=== PATIENT | female | born 1935 | race Caucasian/White ===

== ENCOUNTER 2016-03-19 | Outpatient (CLI) | payer MEDICARE, OTHER | END 2016-03-19 06:25 | disposition EMS.NT | DX: Z03.89 Encounter for observation for other suspected diseases and conditions ruled out (principal) ==

== ENCOUNTER 2016-03-28 | Outpatient (CLI) | payer MEDICARE, OTHER | END 2016-03-28 20:59 | disposition EMS.NT | DX: E16.2 Hypoglycemia, unspecified (principal) ==

== ENCOUNTER 2016-03-30 | Outpatient (CLI) | payer MEDICARE, OTHER | END 2016-03-30 00:36 | disposition critical access hospital (66) | CPT/HCPCS: A0425; A0427 ==

== ENCOUNTER 2016-03-30 00:49 | Inpatient (IN) | payer MEDICARE, OTHER ==
[2016-03-30] MEDS ORDERED: FUROSEMIDE 40 MG/4 ML VIAL IVP STA (01:37)
[2016-03-30] MEDS ORDERED: ACETAMINOPHEN 325 MG TABLET PO STA (01:38)
[2016-03-30] MEDS ORDERED: LEVALBUTEROL 1.25 MG INH STA (01:39)
[2016-03-30] MEDS ORDERED: methylPREDNISolone SUCCINATE 125 MG/2 ML VIAL IVP STA (01:39)
[2016-03-30] MEDS ORDERED: LEVALBUTEROL 1.25 MG INH ONE (01:44)
[2016-03-30] MEDS ORDERED: SODIUM CHLORIDE INHALATION 3 ML NEB ONE (01:44)
[2016-03-30] MEDS ORDERED: FUROSEMIDE 40 MG/4 ML VIAL ONE (01:50)
[2016-03-30] MEDS ORDERED: ACETAMINOPHEN 325 MG TABLET PO ONE (01:50)
[2016-03-30] MEDS ORDERED: methylPREDNISolone SUCCINATE 125 MG/2 ML VIAL IVP ONE (01:50)
[2016-03-30] MEDS ORDERED: ONDANSETRON 4 MG/2 ML VIAL IVP PRN (03:57)
[2016-03-30] MEDS ORDERED: ACETAMINOPHEN 325 MG TABLET PO PRN (03:57)
[2016-03-30] MEDS ORDERED: ALBUTEROL NEB 2.5 MG/3 ML INH PRN (04:03)
[2016-03-30] MEDS ORDERED: AZITHROMYCIN INJ 500 MG in SODIUM CHLORIDE 0.9% 250 ML IV STA (04:07)
[2016-03-30] MEDS: IPRATROPIUM/ALBUTEROL 3 ML NEB INH SCH ×4 (06:15→23:45)
[2016-03-30] MEDS: PANTOPRAZOLE 40 MG TABLET PO SCH (06:32)
[2016-03-30] MEDS: LEVOTHYROXINE 25 MCG TABLET PO SCH (06:32)
[2016-03-30] MEDS: SODIUM CHLORIDE FLUSH 0.9% 10 ML SYRINGE IVP SCH ×3 (06:34→21:37)
[2016-03-30] MEDS ORDERED: INSULIN GLARGINE 300 UNIT/3 ML PEN SUBQ SCH (09:00)
[2016-03-30] MEDS ORDERED: PERFLUTREN LIPID MICROSPHERES 1.65 MG/1.5 ML VIAL IVP ONE (09:13)
[2016-03-30] MEDS: INSULIN ASPART 300 UNIT/3 ML PEN SUBQ SCH ×7 (09:51→22:05)
[2016-03-30] MEDS: ASPIRIN EC 81 MG TABLET PO SCH (09:53)
[2016-03-30] MEDS: FLUTICASONE NASAL SPRAY NAS SCH (09:53)
[2016-03-30] MEDS: ENOXAPARIN 40 MG/0.4 ML SYRINGE SUBQ SCH (09:53)
[2016-03-30] MEDS: FUROSEMIDE 40 MG/4 ML VIAL IVP SCH ×2 (09:54→20:13)
[2016-03-30] MEDS: methylPREDNISolone SUCCINATE 40 MG/ML VIAL IVP SCH ×2 (09:55→21:37)
[2016-03-30] MEDS: POLYETHYLENE GLYCOL 3350 17 GM PACKET PO SCH (09:55)
[2016-03-30] MEDS: SODIUM CHLORIDE FLUSH 0.9% 10 ML SYRINGE IVP PRN (09:56)
[2016-03-30] MEDS: CARVEDILOL 12.5 MG TABLET PO SCH ×2 (10:04→20:14)
[2016-03-30] MEDS: LOSARTAN 50 MG TABLET PO SCH (10:04)
[2016-03-30] MEDS: FORMOTEROL FUMARATE NEB 20 MCG/2 ML INH SCH ×2 (11:00→20:00)
[2016-03-30] MEDS: BUDESONIDE 0.5 MG/2 ML NEB INH SCH ×2 (11:00→20:00)
[2016-03-30] MEDS: PRAVASTATIN 10 MG TABLET PO SCH (20:13)
[2016-03-30] MEDS: MONTELUKAST 10 MG TABLET PO SCH (20:14)
[2016-03-30] MEDS: INSULIN GLARGINE 300 UNIT/3 ML PEN SUBQ SCH (22:06)
[2016-03-31] MEDS: INSULIN ASPART 300 UNIT/3 ML PEN SUBQ SCH ×8 (02:14→21:32)
[2016-03-31] MEDS: IPRATROPIUM/ALBUTEROL 3 ML NEB INH SCH ×3 (05:00→14:10)
[2016-03-31] MEDS: SODIUM CHLORIDE FLUSH 0.9% 10 ML SYRINGE IVP SCH ×3 (06:38→21:07)
[2016-03-31] MEDS: PANTOPRAZOLE 40 MG TABLET PO SCH (06:38)
[2016-03-31] MEDS: LEVOTHYROXINE 25 MCG TABLET PO SCH (06:38)
[2016-03-31] MEDS: BUDESONIDE 0.5 MG/2 ML NEB INH SCH (07:45)
[2016-03-31] MEDS: FORMOTEROL FUMARATE NEB 20 MCG/2 ML INH SCH (07:45)
[2016-03-31] MEDS: INSULIN GLARGINE 300 UNIT/3 ML PEN SUBQ SCH ×2 (08:26→21:10)
[2016-03-31] MEDS: CARVEDILOL 12.5 MG TABLET PO SCH ×2 (08:49→21:07)
[2016-03-31] MEDS: ASPIRIN EC 81 MG TABLET PO SCH (08:49)
[2016-03-31] MEDS: ENOXAPARIN 40 MG/0.4 ML SYRINGE SUBQ SCH (08:50)
[2016-03-31] MEDS: LOSARTAN 50 MG TABLET PO SCH (08:50)
[2016-03-31] MEDS: FUROSEMIDE 40 MG/4 ML VIAL IVP SCH ×2 (08:50→21:08)
[2016-03-31] MEDS: SODIUM CHLORIDE FLUSH 0.9% 10 ML SYRINGE IVP PRN (08:51)
[2016-03-31] MEDS: FLUTICASONE NASAL SPRAY NAS SCH (08:54)
[2016-03-31] MEDS: methylPREDNISolone SUCCINATE 40 MG/ML VIAL IVP SCH (08:54)
[2016-03-31] MEDS: POLYETHYLENE GLYCOL 3350 17 GM PACKET PO SCH (08:54)
[2016-03-31] MEDS ORDERED: INSULIN ASPART 300 UNIT/3 ML PEN SUBQ ONE ×2 (10:00→12:35)
[2016-03-31] MEDS ORDERED: INSULIN ASPART 100 UNIT/1 ML 10 ML MDV SUBQ ONE (12:35)
[2016-03-31] MEDS: PRAVASTATIN 10 MG TABLET PO SCH (21:07)
[2016-03-31] MEDS: MONTELUKAST 10 MG TABLET PO SCH (21:08)
[2016-04-01] MEDS: IPRATROPIUM/ALBUTEROL 3 ML NEB INH SCH ×5 (06:18→23:16)
[2016-04-01] MEDS: FORMOTEROL FUMARATE NEB 20 MCG/2 ML INH SCH ×3 (06:18→23:16)
[2016-04-01] MEDS: BUDESONIDE 0.5 MG/2 ML NEB INH SCH ×3 (06:18→23:16)
[2016-04-01] MEDS: PANTOPRAZOLE 40 MG TABLET PO SCH (08:25)
[2016-04-01] MEDS: LEVOTHYROXINE 25 MCG TABLET PO SCH (08:25)
[2016-04-01] MEDS: metOLazone 2.5 MG TABLET PO SCH (08:25)
[2016-04-01] MEDS: SODIUM CHLORIDE FLUSH 0.9% 10 ML SYRINGE IVP SCH ×3 (08:25→20:52)
[2016-04-01] MEDS: INSULIN ASPART 300 UNIT/3 ML PEN SUBQ SCH ×7 (08:26→20:36)
[2016-04-01] MEDS: ASPIRIN EC 81 MG TABLET PO SCH (11:28)
[2016-04-01] MEDS: CARVEDILOL 12.5 MG TABLET PO SCH ×2 (11:29→20:36)
[2016-04-01] MEDS: INSULIN GLARGINE 300 UNIT/3 ML PEN SUBQ SCH ×2 (11:31→20:37)
[2016-04-01] MEDS: ENOXAPARIN 40 MG/0.4 ML SYRINGE SUBQ SCH (11:31)
[2016-04-01] MEDS: LOSARTAN 50 MG TABLET PO SCH (11:32)
[2016-04-01] MEDS: methylPREDNISolone SUCCINATE 40 MG/ML VIAL IVP SCH (11:32)
[2016-04-01] MEDS: POLYETHYLENE GLYCOL 3350 17 GM PACKET PO SCH (11:33)
[2016-04-01] MEDS: FUROSEMIDE 40 MG/4 ML VIAL IVP SCH ×2 (11:33→20:52)
[2016-04-01] MEDS: FLUTICASONE NASAL SPRAY NAS SCH (11:34)
[2016-04-01] MEDS: PRAVASTATIN 10 MG TABLET PO SCH (20:36)
[2016-04-01] MEDS: MONTELUKAST 10 MG TABLET PO SCH (20:36)
[2016-04-02] MEDS: SODIUM CHLORIDE FLUSH 0.9% 10 ML SYRINGE IVP SCH ×2 (06:17→13:50)
[2016-04-02] MEDS: LEVOTHYROXINE 25 MCG TABLET PO SCH (06:17)
[2016-04-02] MEDS: PANTOPRAZOLE 40 MG TABLET PO SCH (06:17)
[2016-04-02] MEDS: FORMOTEROL FUMARATE NEB 20 MCG/2 ML INH SCH (07:50)
[2016-04-02] MEDS: IPRATROPIUM/ALBUTEROL 3 ML NEB INH SCH ×2 (07:50→13:06)
[2016-04-02] MEDS: BUDESONIDE 0.5 MG/2 ML NEB INH SCH (07:50)
[2016-04-02] MEDS: metOLazone 2.5 MG TABLET PO SCH (08:24)
[2016-04-02] MEDS: POLYETHYLENE GLYCOL 3350 17 GM PACKET PO SCH (08:24)
[2016-04-02] MEDS: FLUTICASONE NASAL SPRAY NAS SCH (08:24)
[2016-04-02] MEDS: ENOXAPARIN 40 MG/0.4 ML SYRINGE SUBQ SCH (08:25)
[2016-04-02] MEDS: methylPREDNISolone SUCCINATE 40 MG/ML VIAL IVP SCH (08:25)
[2016-04-02] MEDS: CARVEDILOL 12.5 MG TABLET PO SCH (08:25)
[2016-04-02] MEDS: LOSARTAN 50 MG TABLET PO SCH (08:25)
[2016-04-02] MEDS: ASPIRIN EC 81 MG TABLET PO SCH (08:25)
[2016-04-02] MEDS: INSULIN ASPART 300 UNIT/3 ML PEN SUBQ SCH ×4 (08:26→11:59)
[2016-04-02] MEDS: FUROSEMIDE 40 MG/4 ML VIAL IVP SCH (08:26)
[2016-04-02] MEDS: INSULIN GLARGINE 300 UNIT/3 ML PEN SUBQ SCH (08:29)
== END 2016-04-02 15:45 | DRG 291 ==
DX: I13.0 Hypertensive heart and chronic kidney disease with heart failure and stage 1 through stage 4 chronic kidney disease, or unspecified chronic kidney disease (principal); J44.9 Chronic obstructive pulmonary disease, unspecified; I11.0 Hypertensive heart disease with heart failure; I50.9 Heart failure, unspecified; E78.00 Pure hypercholesterolemia, unspecified; J45.909 Unspecified asthma, uncomplicated; E11.9 Type 2 diabetes mellitus without complications; J96.21 Acute and chronic respiratory failure with hypoxia; R32 Unspecified urinary incontinence; R35.0 Frequency of micturition; I50.22 Chronic systolic (congestive) heart failure; Z68.43 Body mass index [BMI] 50.0-59.9, adult; E11.22 Type 2 diabetes mellitus with diabetic chronic kidney disease; J44.1 Chronic obstructive pulmonary disease with (acute) exacerbation; N18.2 Chronic kidney disease, stage 2 (mild); E66.01 Morbid (severe) obesity due to excess calories; I48.2 Chronic atrial fibrillation; E78.5 Hyperlipidemia, unspecified; G47.33 Obstructive sleep apnea (adult) (pediatric); I25.10 Atherosclerotic heart disease of native coronary artery without angina pectoris; E03.9 Hypothyroidism, unspecified; I89.0 Lymphedema, not elsewhere classified; F32.9 Major depressive disorder, single episode, unspecified; M19.90 Unspecified osteoarthritis, unspecified site; Z79.51 Long term (current) use of inhaled steroids; Z79.899 Other long term (current) drug therapy; Z79.4 Long term (current) use of insulin; Z66 Do not resuscitate; Z90.79 Acquired absence of other genital organ(s); Z87.891 Personal history of nicotine dependence

== ENCOUNTER 2016-04-21 | Outpatient (CLI) | payer MEDICARE, OTHER | END 2016-04-21 06:54 | disposition critical access hospital (66) | CPT/HCPCS: A0425; A0427 ==

== ENCOUNTER 2016-04-21 07:07 | Inpatient (IN) | payer MEDICARE, OTHER ==
[2016-04-21] MEDS ORDERED: IPRATROPIUM/ALBUTEROL 3 ML NEB INH STA (07:26)
[2016-04-21] MEDS ORDERED: SODIUM CHLORIDE 0.9% 1,000 ML IV ONE ×2 (07:26→10:35)
[2016-04-21] MEDS ORDERED: IPRATROPIUM/ALBUTEROL 3 ML NEB INH ONE (07:38)
[2016-04-21] MEDS ORDERED: SODIUM CHLORIDE FLUSH 0.9% 10 ML SYRINGE IVP PRN (11:03)
[2016-04-21] MEDS ORDERED: IPRATROPIUM/ALBUTEROL 3 ML NEB INH PRN (11:06)
[2016-04-21] MEDS ORDERED: SODIUM CHLORIDE 0.9% 1,000 ML IV SCH (12:00)
[2016-04-21] MEDS: SODIUM CHLORIDE FLUSH 0.9% 10 ML SYRINGE IVP SCH ×2 (13:41→22:49)
[2016-04-21] MEDS ORDERED: SODIUM CHLORIDE INHALATION 3 ML NEB ONE (14:35)
[2016-04-21] MEDS: LEVALBUTEROL 1.25 MG INH SCH ×2 (14:37→21:35)
[2016-04-21] MEDS ORDERED: ACETAMINOPHEN 325 MG TABLET PO PRN (15:08)
[2016-04-21] MEDS: INSULIN ASPART 300 UNIT/3 ML PEN SUBQ SCH ×3 (15:20→21:34)
[2016-04-21] MEDS: IBUPROFEN 800 MG TABLET PO PRN (18:25)
[2016-04-21] MEDS: methylPREDNISolone SUCCINATE 40 MG/ML VIAL IVP SCH ×2 (18:26→21:21)
[2016-04-21] MEDS: PRAVASTATIN 10 MG TABLET PO SCH (21:22)
[2016-04-21] MEDS: CARVEDILOL 12.5 MG TABLET PO SCH (21:22)
[2016-04-21] MEDS: FUROSEMIDE 40 MG TABLET PO SCH (21:22)
[2016-04-21] MEDS: MONTELUKAST 10 MG TABLET PO SCH (21:22)
[2016-04-21] MEDS: INSULIN GLARGINE 300 UNIT/3 ML PEN SUBQ SCH (21:33)
[2016-04-21] MEDS: BUDESONIDE 0.5 MG/2 ML NEB INH SCH (21:35)
[2016-04-21] MEDS: SODIUM CHLORIDE 0.9% 1,000 ML IV SCH (22:49)
[2016-04-22] MEDS: SODIUM CHLORIDE FLUSH 0.9% 10 ML SYRINGE IVP SCH ×3 (05:04→21:36)
[2016-04-22] MEDS: SODIUM CHLORIDE 0.9% 1,000 ML IV SCH ×2 (06:24→14:20)
[2016-04-22] MEDS: PANTOPRAZOLE 40 MG TABLET PO SCH (06:33)
[2016-04-22] MEDS: LEVOTHYROXINE 25 MCG TABLET PO SCH (06:33)
[2016-04-22] MEDS: methylPREDNISolone SUCCINATE 40 MG/ML VIAL IVP SCH ×3 (06:53→21:33)
[2016-04-22] MEDS: LEVALBUTEROL 1.25 MG INH SCH ×3 (08:30→21:09)
[2016-04-22] MEDS: BUDESONIDE 0.5 MG/2 ML NEB INH SCH ×2 (08:30→21:09)
[2016-04-22] MEDS: POLYETHYLENE GLYCOL 3350 17 GM PACKET PO SCH (08:46)
[2016-04-22] MEDS: LOSARTAN 50 MG TABLET PO SCH (08:47)
[2016-04-22] MEDS: CARVEDILOL 12.5 MG TABLET PO SCH ×2 (08:47→21:32)
[2016-04-22] MEDS: FLUTICASONE NASAL SPRAY NAS SCH (08:48)
[2016-04-22] MEDS: FUROSEMIDE 40 MG TABLET PO SCH (08:48)
[2016-04-22] MEDS: INSULIN ASPART 300 UNIT/3 ML PEN SUBQ SCH ×4 (08:54→21:33)
[2016-04-22] MEDS ORDERED: INSULIN GLARGINE 300 UNIT/3 ML PEN SUBQ SCH ×2 (09:00→17:08)
[2016-04-22] MEDS ORDERED: ENOXAPARIN 40 MG/0.4 ML SYRINGE SUBQ SCH (09:00)
[2016-04-22] MEDS ORDERED: predniSONE 20 MG TABLET PO SCH (09:00)
[2016-04-22] MEDS ORDERED: SODIUM CHLORIDE INHALATION 3 ML NEB ONE (13:00)
[2016-04-22] MEDS: IBUPROFEN 800 MG TABLET PO PRN (17:14)
[2016-04-22] MEDS ORDERED: INSULIN REGULAR HUMAN 100 UNIT/1 ML 10 ML MDV SUBQ ONE (18:00)
[2016-04-22] MEDS: INSULIN GLARGINE 300 UNIT/3 ML PEN SUBQ SCH (21:30)
[2016-04-22] MEDS: PRAVASTATIN 10 MG TABLET PO SCH (21:32)
[2016-04-22] MEDS: MONTELUKAST 10 MG TABLET PO SCH (21:32)
[2016-04-22] MEDS ORDERED: INSULIN ASPART 300 UNIT/3 ML PEN SUBQ SCH (22:00)
[2016-04-22] MEDS ORDERED: A & D OINTMENT 5 GM PACKET TOP PRN (22:12)
[2016-04-23] MEDS: SODIUM CHLORIDE FLUSH 0.9% 10 ML SYRINGE IVP SCH ×2 (07:01→08:20)
[2016-04-23] MEDS: PANTOPRAZOLE 40 MG TABLET PO SCH (07:01)
[2016-04-23] MEDS: LEVOTHYROXINE 25 MCG TABLET PO SCH (07:01)
[2016-04-23] MEDS: LEVALBUTEROL 1.25 MG INH SCH ×2 (07:30→09:07)
[2016-04-23] MEDS: BUDESONIDE 0.5 MG/2 ML NEB INH SCH ×2 (07:30→09:07)
[2016-04-23] MEDS: INSULIN ASPART 300 UNIT/3 ML PEN SUBQ SCH ×2 (08:17→11:50)
[2016-04-23] MEDS: CARVEDILOL 12.5 MG TABLET PO SCH (08:19)
[2016-04-23] MEDS: methylPREDNISolone SUCCINATE 40 MG/ML VIAL IVP SCH (08:20)
[2016-04-23] MEDS: FLUTICASONE NASAL SPRAY NAS SCH (08:21)
[2016-04-23] MEDS: LOSARTAN 50 MG TABLET PO SCH (08:21)
[2016-04-23] MEDS ORDERED: CLOPIDOGREL 75 MG TABLET PO SCH (09:00)
[2016-04-23] MEDS ORDERED: FUROSEMIDE 40 MG TABLET PO SCH (09:00)
[2016-04-23] MEDS ORDERED: ENOXAPARIN 30 MG/0.3 ML SYRINGE SUBQ SCH (09:00)
[2016-04-23] MEDS: POLYETHYLENE GLYCOL 3350 17 GM PACKET PO SCH (09:07)
[2016-04-23] MEDS ORDERED: INSULIN GLARGINE 300 UNIT/3 ML PEN SUBQ ONE (09:30)
[2016-04-23] MEDS: IBUPROFEN 800 MG TABLET PO PRN (15:13)
[2016-04-24] MEDS ORDERED: INSULIN GLARGINE 300 UNIT/3 ML PEN SUBQ SCH (09:00)
== END 2016-04-23 16:18 | DRG 872 ==
DX: A41.9 Sepsis, unspecified organism (principal); R40.1 Stupor; L03.115 Cellulitis of right lower limb; I25.10 Atherosclerotic heart disease of native coronary artery without angina pectoris; I11.0 Hypertensive heart disease with heart failure; E78.00 Pure hypercholesterolemia, unspecified; I13.0 Hypertensive heart and chronic kidney disease with heart failure and stage 1 through stage 4 chronic kidney disease, or unspecified chronic kidney disease; G47.30 Sleep apnea, unspecified; E11.9 Type 2 diabetes mellitus without complications; N17.9 Acute kidney failure, unspecified; Z68.42 Body mass index [BMI] 45.0-49.9, adult; I48.2 Chronic atrial fibrillation; E86.0 Dehydration; R65.20 Severe sepsis without septic shock; E11.22 Type 2 diabetes mellitus with diabetic chronic kidney disease; E11.65 Type 2 diabetes mellitus with hyperglycemia; N18.2 Chronic kidney disease, stage 2 (mild); I50.9 Heart failure, unspecified; E66.01 Morbid (severe) obesity due to excess calories; J44.9 Chronic obstructive pulmonary disease, unspecified; G47.33 Obstructive sleep apnea (adult) (pediatric); J45.909 Unspecified asthma, uncomplicated; E03.9 Hypothyroidism, unspecified; I07.1 Rheumatic tricuspid insufficiency; Z87.891 Personal history of nicotine dependence; I89.0 Lymphedema, not elsewhere classified; F32.9 Major depressive disorder, single episode, unspecified; Z79.4 Long term (current) use of insulin; Z79.51 Long term (current) use of inhaled steroids; Z79.52 Long term (current) use of systemic steroids; Z79.899 Other long term (current) drug therapy

== ENCOUNTER 2016-05-01 16:30 | Outpatient (CLI) | payer MEDICARE, OTHER | END 2016-05-01 16:31 | DX: I50.9 Heart failure, unspecified (principal); L03.116 Cellulitis of left lower limb ==

== ENCOUNTER 2016-05-05 | Outpatient (CLI) | payer MEDICARE, OTHER | END 2016-05-05 21:52 | disposition critical access hospital (66) | DX: R06.02 Shortness of breath (principal) | CPT/HCPCS: A0425; A0427 ==

== ENCOUNTER 2016-05-05 21:57 | Emergency (ER) | payer MEDICARE, OTHER ==
[2016-05-05 22:15] VITALS: BP 125/62
--- NOTE | 2016-05-05 22:15 | ED Physician Documentation ---
PD HPI DYSPNEA - Stated complaint Stated Complaint: SOA - Chief complaint Chief Complaint: Resp - History obtained from History obtained from: Patient, EMS - History of Present Illness Timing - onset: How many days ago (she says she has had dyspnea since being in [facility] couple weeks ago. Not every completely better, then worsening the past 2-3 days.) Timing - onset during: Sleep (lying down), Light activity Timing - duration: Minutes Timing - details: Gradual onset, Still present (worse the past 2-3 days) Inciting event(s): Allergic rxn/anaphylaxis Improved by: Inhaler/neb. No: Lasix (had dose increased from 40 mg to 100 mg PO today.) Review of Systems Constitutional: denies: Fever, Chills, Myalgias Nose: denies: Rhinorrhea / runny nose, Congestion Cardiac: denies: Chest pain / pressure GI: reports: Nausea, Vomiting. denies: Abdominal Pain : denies: Dysuria Neurologic: reports: Generalized weakness. denies: Focal weakness, Numbness, Near syncope PD PAST MEDICAL HISTORY - Past Medical History Cardiovascular: Congestive heart failure, Hypertension, High cholesterol, Coronary artery disease Respiratory: Asthma, COPD, Shortness of breath, Sleep apnea Neuro: None Endocrine/Autoimmune: Type 2 diabetes GI: Other DEMOGRAPHER: None : Incontinence, Frequency HEENT: None Psych: Depression Musculoskeletal: Osteoarthritis Derm: None - Past Surgical History Past Surgical History: Yes Ortho: Other /DEMOGRAPHER: Hysterectomy HEENT: Cataracts - Present Medications Home Medications: Ambulatory Orders Medication Instructions Recorded Confirmed Albuterol Sulfate [Proair Hfa 1 - 2 puffs INH Q4H PRN 06/30/15 05/05/16 Inhaler] Carvedilol [Coreg] 25 mg PO BID 12/12/15 05/05/16 Losartan Potassium 50 mg PO DAILY 12/12/15 05/05/16 Fluticasone [Flonase] 2 sprays CLARISA DAILY 01/19/16 05/05/16 Levothyroxine [Synthroid] 25 mcg PO QDAC 01/19/16 05/05/16 Montelukast [Singulair] 10 mg PO QPM 01/19/16 05/05/16 Pravastatin [Pravachol] 20 mg PO QPM 01/19/16 05/05/16 Ipratropium/Albuterol [Duoneb] 3 ml INH Q6H PRN #30 neb 01/21/16 05/05/16 Fluticasone/Salmeterol [Advair 1 puffs INH BID 02/26/16 05/05/16 250-50 Diskus] Insulin Detemir [Levemir Flextouch] 80 units SUBQ DAILY 02/26/16 05/05/16 Insulin Lispro [Humalog Kwikpen 30 - 50 units SUBQ TIDWM 02/26/16 05/05/16 U-100] Omeprazole 20 mg PO QDAC 02/26/16 05/05/16 Furosemide [Furosemide] 40 mg PO DAILY 03/31/16 05/05/16 Insulin Detemir [Levemir Flextouch] 100 units SUBQ QPM 04/21/16 05/05/16 Clopidogrel Bisulfate [Plavix] 75 mg PO DAILY 05/05/16 05/05/16 metOLazone [Zaroxolyn] 2.5 mg PO DAILY #5 tablet 05/06/16 - Allergies Allergies/Adverse Reactions: Allergies Allergy/AdvReac Type Severity Reaction Status Date / Time cefaclor [From [facility]] Allergy Intermediate Itching Verified 05/05/16 22:03 - Social History Does the pt smoke?: No Smoking Status: Never smoker Does the pt have substance abuse?: No - Immunizations Immunizations are current?: Yes - POLST Patient has POLST: No PD ED PE NORMAL - Vitals Vital signs reviewed: Yes - General General: Alert and oriented X 3, No acute distress, Well developed/nourished - HEENT HEENT: Atraumatic, Ears normal, Pharynx benign - Neck Neck: Supple, no meningeal sign, No adenopathy - Cardiac Cardiac: RRR, No murmur - Respiratory Respiratory: No: Clear bilaterally (mild scattered wheezing. Fine crackles lower third of lung jo both sides. Has orthopnea and feels better sitting up. ) - Back Back: No CVA TTP - Derm Derm: Normal color, Warm and dry - Extremities Extremities: No calf tenderness / cord, Other (2-3+ edema in both legs, with some mild redness right lower leg. Faint blistering of anterior lower legs with clear fluid. ) - Neuro Neuro: Alert and oriented X 3, No motor deficit, Normal speech Results - Vitals Vitals: Vital Signs - 24 hr 05/05/16 05/05/16 05/06/16 21:57 22:05 00:15 Temperature 36.2 C L Heart Rate 90 126 H 103 H Respiratory 24 18 14 Rate Blood Pressure 103/51 L 125/62 O2 Saturation 94 97 Oxygen O2 Source [With Activity] Nasal cannula O2 Source [Without Activity] Room air O2 Source Room air - Labs Labs: Laboratory Tests 05/05/16 05/05/16 05/05/16 23:23 23:23 23:23 WBC 12.5 H RBC 3.74 L Hgb 10.9 L Hct 34.2 L MCV 91.4 MCH 29.1 MCHC 31.9 L RDW 18.7 H Plt Count 182 MPV 8.9 Neut # Not Reportable Lymph # Not Reportable Dickenson # Not Reportable Eos # Not Reportable Baso # Not Reportable Absolute Nucleated RBC Not Reportable Total Counted 100 Band Neuts % (Manual) 0 Neutrophils # (Manual) 9.5 H Lymphocytes # (Manual) 2.0 Monocytes # (Manual) 0.9 Eosinophils # (Manual) 0.1 Nucleated RBCs Not Reportable Differential Comment MANUAL DIFFERENTIAL Platelet Estimate NORMAL (130-450,000) Platelet Morphology NORMAL APPEARANCE RBC Morph Micro Appear NORMAL APPEARANCE Sodium 138 Potassium 4.6 Chloride 102 Carbon Dioxide 27 Anion Gap 9.0 BUN 91 H* Creatinine 2.0 H Estimated GFR (MDRD) 24 L Glucose 211 H Calcium 8.2 L Magnesium 2.1 Total Bilirubin 0.7 AST 20 ALT 44 Alkaline Phosphatase 101 Troponin I B-Natriuretic Peptide 56 Total Protein 4.8 L Albumin 2.6 L Globulin 2.2 Albumin/Globulin Ratio 1.2 Lipase 80 H 05/05/16 23:23 WBC RBC Hgb Hct MCV MCH MCHC RDW Plt Count MPV Neut # Lymph # Dickenson # Eos # Baso # Absolute Nucleated RBC Total Counted Band Neuts % (Manual) Neutrophils # (Manual) Lymphocytes # (Manual) Monocytes # (Manual) Eosinophils # (Manual) Nucleated RBCs Differential Comment Platelet Estimate Platelet Morphology RBC Morph Micro Appear Sodium Potassium Chloride Carbon Dioxide Anion Gap BUN Creatinine Estimated GFR (MDRD) Glucose Calcium Magnesium Total Bilirubin AST ALT Alkaline Phosphatase Troponin I < 0.04 B-Natriuretic Peptide Total Protein Albumin Globulin Albumin/Globulin Ratio Lipase PD MEDICAL DECISION MAKING - ED course Complexity details: considered differential (has significant leg edema both sides, with tightness and mild blistering anteriorly. Has fine crackles in both lungs. However, sats are good and renal function is better than during recent hospitalization. She has been on oral Lasix at [facility], 40 mg PO. Had higher dose just today without improvement. Is having some diuresing with IV dose here. Does not look too bad and the CXR is not too bad. I think there is fluid overload and needs further diuresing, but not in severe CHF. ), d/w patient, d/ w leadership development consultant (Will talk with Hospitalist regarding OBS for further diuresing vs. back to [facility] with higher PO dose. Feeling was patient did not meet OBS criteria and can try higher doses/etc at [facility], since did have good initial diuresis and clinical improvement here. ) Departure - Departure Disposition: 01 Home, Self Care Clinical Impression: Dyspnea Qualifiers: Dyspnea type: shortness of breath Qualified Code(s): R06.02 - Shortness of breath CHF exacerbation Qualifiers: Congestive heart failure type: unspecified congestive heart failure type Qualified Code(s): I50.9 - Heart failure, unspecified Condition: Stable Prescriptions: metOLazone [Zaroxolyn] 2.5 mg PO DAILY #5 tablet Comments: Increase daily lasix from 40 mg once daily to twice daily (in AM and then at noon). Add Zaroxyln 2.5 mg daily for 5 days. Recheck BMP chemistry test in 4 days. Discharge Date/Time: 05/06/16 02:40
[2016-05-05] MEDS ORDERED: FUROSEMIDE 20 MG/2 ML VIAL IVP ONE (22:56)
[2016-05-05] MEDS: FUROSEMIDE 40 MG/4 ML VIAL IVP STA (22:58)
--- NOTE | 2016-05-05 23:11 | XRAY Preliminary Report ---
Exam: XR Chest 2 View PA/LAT IMPRESSION: 1. There is mild cardiomegaly. 2. No clear evidence of acute plain film abnormality. [facility] SITE ID: [id number]
--- NOTE | 2016-05-05 23:14 | XRAY Report ---
EXAM: CHEST RADIOGRAPHY EXAM DATE: 05/05/2016 10:59 PM. CLINICAL HISTORY: Dyspnea, heart failure COMPARISON: 04/22/2016. TECHNIQUE: 2 views. FINDINGS: Lungs/Pleura: Detail limited by patient body habitus. Increased opacity within the lower lungs is pro bably secondary to overlying soft tissues. No evidence of focal infiltrate or pleural effusion. No pn eumothorax. Mediastinum: Mild cardiomegaly. Other: No acute bony abnormalities are seen. IMPRESSION: 1. There is mild cardiomegaly. 2. No clear evidence of acute plain film abnormality. [facility] Referring Provider Line: [phone] SITE ID: [id number]
[2016-05-05 23:33] LABS: BASOPHILS % (AUTO) 0.5 %; EOSINOPHILS % (AUTO) 0.4 %; HCT - HEMATOCRIT 34.2 % (37.0-47.0); HGB - HEMOGLOBIN 10.9 g/dL (12.0-16.0); LYMPHOCYTES % (AUTO) 14.7 %; MEAN CORPUSCULAR HEMOGLOBIN 29.1 pg (27.0-31.0); MEAN CORPUSCULAR HGB CONC 31.9 g/dL (32.0-36.0); MEAN CORPUSCULAR VOLUME 91.4 fL (81.0-99.0); MEAN PLATELET VOLUME 8.9 fL (7.9-10.8); MONOCYTES % (AUTO) 7.2 %; NEUTROPHILS % (AUTO) 77.2 %; RED BLOOD COUNT 3.74 10^6/uL (4.20-5.40); RED CELL DISTRIBUTION WIDTH 18.7 % (12.0-15.0); UNCORRECTED WHITE BLOOD COUNT 12.5 x10^3/uL; WHITE BLOOD COUNT 12.5 x10^3/uL (4.8-10.8)
[2016-05-05 23:35] LABS: BAND NEUTROPHILS % (MANUAL) 0 %
[2016-05-06] MEDS ORDERED: IPRATROPIUM/ALBUTEROL 3 ML NEB INH ONE (00:12)
[2016-05-06] MEDS: IPRATROPIUM/ALBUTEROL 3 ML NEB INH STA (00:14)
[2016-05-06 00:35] LABS: EOSINOPHILS % (MANUAL) 1 %; LYMPHOCYTES % (MANUAL) 16 %; NEUTROPHILS % (MANUAL) 76 %; TOTAL CELLS COUNTED 100
[2016-05-06 00:36] LABS: NP AUTO DIFFERENTIAL? YES; NP MAN DIFFERENTIAL? NO; PLATELET ESTIMATE, MANUAL NORMAL (130-450,000) (NORMAL); PLATELET MORPHOLOGY NORMAL APPEARANCE (NORMAL)
[2016-05-06 00:46] LABS: ALBUMIN/GLOBULIN RATIO 1.2 (1.0-2.2); BILIRUBIN,TOTAL 0.7 mg/dL (0.2-1.0); CALCIUM 8.2 mg/dL (8.5-10.3); MAGNESIUM 2.1 mg/dL (1.7-2.8); POTASSIUM 4.6 mmol/L (3.5-5.0); TOTAL PROTEIN 4.8 g/dL (6.7-8.2)
[2016-05-06] MEDS: BUMETANIDE 1 MG/4 ML VIAL IVP STA (01:45)
== END 2016-05-06 02:40 | disposition home or self-care (01) ==
LOC: EDUNIT# → ED 21:57
DX: I11.0 Hypertensive heart disease with heart failure (principal); I50.9 Heart failure, unspecified; I48.91 Unspecified atrial fibrillation; I25.10 Atherosclerotic heart disease of native coronary artery without angina pectoris; R94.31 Abnormal electrocardiogram [ECG] [EKG]; J45.909 Unspecified asthma, uncomplicated; J44.9 Chronic obstructive pulmonary disease, unspecified; E11.9 Type 2 diabetes mellitus without complications; Z79.4 Long term (current) use of insulin; E78.00 Pure hypercholesterolemia, unspecified; M19.90 Unspecified osteoarthritis, unspecified site
CPT/HCPCS: 36415; 51798; 71020; 80053; 83690; 83735; 83880; 84484; 85025; 93005; 94640; 96374; 96375; 99284

== ENCOUNTER 2016-05-06 | Outpatient (CLI) | payer MEDICARE, OTHER | END 2016-05-06 02:20 | DX: R06.02 Shortness of breath (principal) | CPT/HCPCS: A0425; A0428 ==

== ENCOUNTER 2016-05-07 | Outpatient (CLI) | payer MEDICARE, OTHER | END 2016-05-07 10:45 | disposition critical access hospital (66) | CPT/HCPCS: A0425; A0429 ==

== ENCOUNTER 2016-05-07 10:48 | Inpatient (IN) | payer MEDICARE, OTHER ==
[2016-05-07] MEDS ORDERED: IPRATROPIUM/ALBUTEROL 3 ML NEB INH STA (12:06)
[2016-05-07] MEDS ORDERED: SODIUM CHLORIDE 0.9% 500 ML IV ONE (12:06)
[2016-05-07] MEDS ORDERED: IPRATROPIUM/ALBUTEROL 3 ML NEB INH ONE (12:13)
[2016-05-07] MEDS ORDERED: VANCOMYCIN INJ 2 GM in SODIUM CHLORIDE 0.9% 500 ML IV SCH (17:00)
[2016-05-07] MEDS: SODIUM CHLORIDE 0.9% 1,000 ML IV SCH (17:15)
[2016-05-07] MEDS: SODIUM CHLORIDE FLUSH 0.9% 10 ML SYRINGE IVP PRN (17:16)
[2016-05-07] MEDS: INSULIN ASPART 300 UNIT/3 ML PEN SUBQ SCH ×2 (17:28→22:07)
[2016-05-07] MEDS: INSULIN GLARGINE 300 UNIT/3 ML PEN SUBQ SCH (22:07)
[2016-05-07] MEDS: SODIUM CHLORIDE FLUSH 0.9% 10 ML SYRINGE IVP SCH (22:09)
[2016-05-08] MEDS: ONDANSETRON 4 MG/2 ML VIAL IVP PRN ×2 (03:59→10:21)
[2016-05-08] MEDS: SODIUM CHLORIDE FLUSH 0.9% 10 ML SYRINGE IVP SCH ×3 (05:05→22:48)
[2016-05-08] MEDS: IPRATROPIUM/ALBUTEROL 3 ML NEB INH PRN (05:15)
[2016-05-08] MEDS ORDERED: DEXTROSE 50% ABBOJECT 25 GM/50 ML SYRINGE ONE (05:28)
[2016-05-08] MEDS ORDERED: ACETAMINOPHEN 325 MG TABLET PO PRN (06:27)
[2016-05-08] MEDS: INSULIN ASPART 300 UNIT/3 ML PEN SUBQ SCH ×4 (07:57→20:53)
[2016-05-08] MEDS ORDERED: ENOXAPARIN 40 MG/0.4 ML SYRINGE SUBQ SCH (09:00)
[2016-05-08] MEDS: POLYETHYLENE GLYCOL 3350 17 GM PACKET PO SCH (09:06)
[2016-05-08] MEDS: CARVEDILOL 12.5 MG TABLET PO SCH ×2 (09:07→22:07)
[2016-05-08] MEDS ORDERED: DOCUSATE SODIUM 250 MG CAPSULE PO ONE (09:30)
[2016-05-08] MEDS ORDERED: SENNA 8.6 MG TABLET PO ONE (09:30)
[2016-05-08] MEDS: ACETAMINOPHEN 325 MG TABLET PO PRN ×2 (10:20→23:43)
[2016-05-08] MEDS: INSULIN GLARGINE 300 UNIT/3 ML PEN SUBQ SCH (22:07)
[2016-05-08] MEDS: SODIUM CHLORIDE 0.9% 1,000 ML IV SCH (22:07)
[2016-05-08] MEDS ORDERED: CARVEDILOL 12.5 MG TABLET PO SCH (22:36)
[2016-05-09] MEDS: SODIUM CHLORIDE FLUSH 0.9% 10 ML SYRINGE IVP SCH ×3 (05:19→21:33)
[2016-05-09] MEDS ORDERED: DEXTROSE 50% ABBOJECT 25 GM/50 ML SYRINGE ONE ×2 (06:50→16:47)
[2016-05-09] MEDS: IPRATROPIUM/ALBUTEROL 3 ML NEB INH PRN ×2 (10:04→20:30)
[2016-05-09] MEDS: INSULIN ASPART 300 UNIT/3 ML PEN SUBQ SCH ×4 (11:03→21:33)
[2016-05-09] MEDS: POLYETHYLENE GLYCOL 3350 17 GM PACKET PO SCH (11:04)
[2016-05-09] MEDS: SODIUM CHLORIDE 0.9% 1,000 ML IV SCH (12:00)
[2016-05-09] MEDS: ENOXAPARIN 30 MG/0.3 ML SYRINGE SUBQ SCH (12:11)
[2016-05-09] MEDS ORDERED: DEXTROSE 10% 1,000 ML IV STA (16:14)
[2016-05-09] MEDS: ACETAMINOPHEN 325 MG TABLET PO PRN (17:42)
[2016-05-09] MEDS: VANCOMYCIN INJ 1 GM, VANCOMYCIN INJ 500 MG in SODIUM CHLORIDE 0.9% 500 ML IV SCH (18:13)
[2016-05-10] MEDS: ACETAMINOPHEN 325 MG TABLET PO PRN ×2 (03:31→09:10)
[2016-05-10] MEDS: IPRATROPIUM/ALBUTEROL 3 ML NEB INH PRN ×5 (03:45→21:35)
[2016-05-10] MEDS: SODIUM CHLORIDE FLUSH 0.9% 10 ML SYRINGE IVP SCH ×3 (05:04→17:16)
[2016-05-10] MEDS: INSULIN ASPART 300 UNIT/3 ML PEN SUBQ SCH ×4 (08:58→20:47)
[2016-05-10] MEDS: ENOXAPARIN 30 MG/0.3 ML SYRINGE SUBQ SCH (09:13)
[2016-05-10] MEDS: POLYETHYLENE GLYCOL 3350 17 GM PACKET PO SCH (09:16)
[2016-05-10] MEDS: ALBUTEROL NEB 2.5 MG/3 ML INH PRN (13:28)
[2016-05-10] MEDS ORDERED: INSULIN GLARGINE 300 UNIT/3 ML PEN SUBQ SCH (21:00)
[2016-05-10] MEDS ORDERED: SODIUM CHLORIDE 0.9% 1,000 ML IV SCH (23:45)
[2016-05-11] MEDS: IPRATROPIUM/ALBUTEROL 3 ML NEB INH PRN ×5 (00:40→21:00)
[2016-05-11] MEDS: SODIUM CHLORIDE FLUSH 0.9% 10 ML SYRINGE IVP SCH ×3 (05:57→18:25)
[2016-05-11] MEDS ORDERED: DEXTROSE 50% ABBOJECT 25 GM/50 ML SYRINGE IVP ONE (06:24)
[2016-05-11] MEDS: LEVOTHYROXINE 25 MCG TABLET PO SCH (08:00)
[2016-05-11] MEDS: INSULIN ASPART 300 UNIT/3 ML PEN SUBQ SCH ×4 (08:00→21:55)
[2016-05-11] MEDS: MULTIVITAMIN TABLET PO SCH (08:00)
[2016-05-11] MEDS: CLOPIDOGREL 75 MG TABLET PO SCH (08:13)
[2016-05-11] MEDS: ENOXAPARIN 30 MG/0.3 ML SYRINGE SUBQ SCH (08:13)
[2016-05-11] MEDS: POLYETHYLENE GLYCOL 3350 17 GM PACKET PO SCH (08:14)
[2016-05-11] MEDS: methylPREDNISolone SUCCINATE 40 MG/ML VIAL IVP SCH ×2 (08:14→21:52)
[2016-05-11] MEDS ORDERED: NON FORMULARY MED (Multivitamin [Multivitamins] 1 TAB) PO SCH (09:00)
[2016-05-11] MEDS: BUDESONIDE 0.5 MG/2 ML NEB INH SCH ×2 (10:45→21:00)
[2016-05-11] MEDS ORDERED: MIN OIL/DIMETHICON/COCONUT OIL 92 GM TUBE TOP ONE (13:50)
[2016-05-11] MEDS: VANCOMYCIN INJ 1 GM, VANCOMYCIN INJ 500 MG in SODIUM CHLORIDE 0.9% 500 ML IV SCH (18:22)
[2016-05-11] MEDS ORDERED: GLUCAGON 1 MG/ML VIAL SUBQ PRN (21:39)
[2016-05-11] MEDS ORDERED: DEXTROSE 50% ABBOJECT 25 GM/50 ML SYRINGE IVP PRN (21:39)
[2016-05-11] MEDS ORDERED: DEXTROSE GEL 37.5 GM TUBE PO PRN (21:39)
[2016-05-11] MEDS ORDERED: DEXTROSE 5% 1,000 ML IV PRN (21:39)
[2016-05-11] MEDS: SODIUM CHLORIDE FLUSH 0.9% 10 ML SYRINGE IVP PRN (21:52)
[2016-05-11] MEDS: INSULIN GLARGINE 300 UNIT/3 ML PEN SUBQ SCH (22:43)
[2016-05-12] MEDS ORDERED: INSULIN ASPART 300 UNIT/3 ML PEN SUBQ STA (02:09)
[2016-05-12] MEDS: LEVOTHYROXINE 25 MCG TABLET PO SCH (06:50)
[2016-05-12] MEDS: SODIUM CHLORIDE FLUSH 0.9% 10 ML SYRINGE IVP SCH ×3 (06:50→21:08)
[2016-05-12] MEDS: BUDESONIDE 0.5 MG/2 ML NEB INH SCH ×2 (07:15→21:35)
[2016-05-12] MEDS: IPRATROPIUM/ALBUTEROL 3 ML NEB INH PRN ×3 (07:15→21:35)
[2016-05-12] MEDS ORDERED: INSULIN ASPART 300 UNIT/3 ML PEN SUBQ SCH ×3 (08:00→17:00)
[2016-05-12] MEDS: ENOXAPARIN 30 MG/0.3 ML SYRINGE SUBQ SCH (08:26)
[2016-05-12] MEDS: methylPREDNISolone SUCCINATE 40 MG/ML VIAL IVP SCH (08:26)
[2016-05-12] MEDS: CLOPIDOGREL 75 MG TABLET PO SCH (08:26)
[2016-05-12] MEDS: MULTIVITAMIN TABLET PO SCH (08:26)
[2016-05-12] MEDS: INSULIN ASPART 300 UNIT/3 ML PEN SUBQ SCH ×4 (08:44→21:00)
[2016-05-12] MEDS: SENNA 8.6 MG TABLET PO SCH (08:52)
[2016-05-12] MEDS: POLYETHYLENE GLYCOL 3350 17 GM PACKET PO SCH (08:52)
[2016-05-12] MEDS: DOCUSATE SODIUM 250 MG CAPSULE PO SCH (08:52)
[2016-05-12] MEDS ORDERED: INSULIN ASPART 300 UNIT/3 ML PEN SUBQ ONE (12:30)
[2016-05-12] MEDS: ACETAMINOPHEN 325 MG TABLET PO PRN (19:40)
[2016-05-12] MEDS ORDERED: INSULIN GLARGINE 300 UNIT/3 ML PEN SUBQ SCH (21:00)
[2016-05-12] MEDS: INSULIN GLARGINE 300 UNIT/3 ML PEN SUBQ SCH (21:05)
[2016-05-13] MEDS: LEVOTHYROXINE 25 MCG TABLET PO SCH (06:03)
[2016-05-13] MEDS: SODIUM CHLORIDE FLUSH 0.9% 10 ML SYRINGE IVP SCH ×3 (06:03→20:52)
[2016-05-13] MEDS: IPRATROPIUM/ALBUTEROL 3 ML NEB INH PRN (07:11)
[2016-05-13] MEDS: BUDESONIDE 0.5 MG/2 ML NEB INH SCH ×2 (07:11→21:00)
[2016-05-13] MEDS: INSULIN ASPART 300 UNIT/3 ML PEN SUBQ SCH ×4 (09:17→21:37)
[2016-05-13] MEDS: ENOXAPARIN 30 MG/0.3 ML SYRINGE SUBQ SCH (09:17)
[2016-05-13] MEDS: POLYETHYLENE GLYCOL 3350 17 GM PACKET PO SCH (09:18)
[2016-05-13] MEDS: DOCUSATE SODIUM 250 MG CAPSULE PO SCH (09:18)
[2016-05-13] MEDS: methylPREDNISolone SUCCINATE 40 MG/ML VIAL IVP SCH (09:18)
[2016-05-13] MEDS: SENNA 8.6 MG TABLET PO SCH (09:18)
[2016-05-13] MEDS: MULTIVITAMIN TABLET PO SCH (09:18)
[2016-05-13] MEDS: CLOPIDOGREL 75 MG TABLET PO SCH (09:18)
[2016-05-13] MEDS: FUROSEMIDE 20 MG/2 ML VIAL IVP SCH ×2 (10:36→14:16)
[2016-05-13] MEDS ORDERED: INSULIN ASPART 300 UNIT/3 ML PEN SUBQ ONE (17:00)
[2016-05-13] MEDS ORDERED: VANCOMYCIN 500 MG VIAL ONE (17:28)
[2016-05-13] MEDS ORDERED: VANCOMYCIN 1 GM VIAL ONE (17:28)
[2016-05-13] MEDS ORDERED: SODIUM CHLORIDE 0.9% 500 ML IV ONE (17:28)
[2016-05-13] MEDS: VANCOMYCIN INJ 1 GM, VANCOMYCIN INJ 500 MG in SODIUM CHLORIDE 0.9% 500 ML IV SCH (17:48)
[2016-05-13] MEDS ORDERED: INSULIN ASPART 300 UNIT/3 ML PEN SUBQ SCH (20:49)
[2016-05-13] MEDS: INSULIN GLARGINE 300 UNIT/3 ML PEN SUBQ SCH (20:51)
[2016-05-14] MEDS: FUROSEMIDE 20 MG/2 ML VIAL IVP SCH (06:42)
[2016-05-14] MEDS: LEVOTHYROXINE 25 MCG TABLET PO SCH (06:42)
[2016-05-14] MEDS: SODIUM CHLORIDE FLUSH 0.9% 10 ML SYRINGE IVP SCH ×3 (06:42→23:10)
[2016-05-14] MEDS: BUDESONIDE 0.5 MG/2 ML NEB INH SCH ×2 (07:45→20:37)
[2016-05-14] MEDS: IPRATROPIUM/ALBUTEROL 3 ML NEB INH PRN (07:45)
[2016-05-14] MEDS: INSULIN ASPART 300 UNIT/3 ML PEN SUBQ SCH ×4 (08:37→21:32)
[2016-05-14] MEDS: CLOPIDOGREL 75 MG TABLET PO SCH (08:39)
[2016-05-14] MEDS: ENOXAPARIN 30 MG/0.3 ML SYRINGE SUBQ SCH (08:39)
[2016-05-14] MEDS: MULTIVITAMIN TABLET PO SCH (08:39)
[2016-05-14] MEDS: INSULIN GLARGINE 300 UNIT/3 ML PEN SUBQ SCH ×2 (08:40→21:31)
[2016-05-14] MEDS: methylPREDNISolone SUCCINATE 40 MG/ML VIAL IVP SCH (08:41)
[2016-05-14] MEDS: SODIUM CHLORIDE FLUSH 0.9% 10 ML SYRINGE IVP PRN (08:42)
[2016-05-14] MEDS: POLYETHYLENE GLYCOL 3350 17 GM PACKET PO SCH (08:44)
[2016-05-14] MEDS: SENNA 8.6 MG TABLET PO SCH (08:44)
[2016-05-14] MEDS: DOCUSATE SODIUM 250 MG CAPSULE PO SCH (08:44)
[2016-05-14] MEDS: METOPROLOL SUCCINATE 50 MG TABLET PO SCH (12:04)
[2016-05-14] MEDS ORDERED: PIPERACILLIN/TAZOBACTAM 2.25 GM in SODIUM CHLORIDE 0.9% MINIBAG 100 ML IV ONE (15:00)
[2016-05-14] MEDS: PIPERACILLIN/TAZOBACTAM 2.25 GM in SODIUM CHLORIDE 0.9% MINIBAG 100 ML IV SCH (17:02)
[2016-05-14] MEDS ORDERED: INSULIN ASPART 300 UNIT/3 ML PEN SUBQ SCH (22:00)
[2016-05-15] MEDS: PIPERACILLIN/TAZOBACTAM 2.25 GM in SODIUM CHLORIDE 0.9% MINIBAG 100 ML IV SCH ×3 (00:40→16:59)
[2016-05-15] MEDS: SODIUM CHLORIDE FLUSH 0.9% 10 ML SYRINGE IVP SCH ×3 (06:29→17:02)
[2016-05-15] MEDS: LEVOTHYROXINE 25 MCG TABLET PO SCH (06:29)
[2016-05-15] MEDS: BUDESONIDE 0.5 MG/2 ML NEB INH SCH ×2 (07:35→18:16)
[2016-05-15] MEDS: IPRATROPIUM/ALBUTEROL 3 ML NEB INH PRN ×5 (07:35→18:09)
[2016-05-15] MEDS: INSULIN ASPART 300 UNIT/3 ML PEN SUBQ SCH ×4 (08:53→21:08)
[2016-05-15] MEDS: MULTIVITAMIN TABLET PO SCH (08:53)
[2016-05-15] MEDS: ENOXAPARIN 30 MG/0.3 ML SYRINGE SUBQ SCH (08:54)
[2016-05-15] MEDS: CLOPIDOGREL 75 MG TABLET PO SCH (08:54)
[2016-05-15] MEDS: FUROSEMIDE 20 MG/2 ML VIAL IVP SCH (08:54)
[2016-05-15] MEDS: INSULIN GLARGINE 300 UNIT/3 ML PEN SUBQ SCH ×2 (08:55→21:11)
[2016-05-15] MEDS: methylPREDNISolone SUCCINATE 40 MG/ML VIAL IVP SCH (08:58)
[2016-05-15] MEDS: SODIUM CHLORIDE FLUSH 0.9% 10 ML SYRINGE IVP PRN (08:59)
[2016-05-15] MEDS: METOPROLOL SUCCINATE 50 MG TABLET PO SCH (09:00)
[2016-05-15] MEDS: SENNA 8.6 MG TABLET PO SCH (09:03)
[2016-05-15] MEDS: DOCUSATE SODIUM 250 MG CAPSULE PO SCH (09:03)
[2016-05-15] MEDS: POLYETHYLENE GLYCOL 3350 17 GM PACKET PO SCH (09:03)
[2016-05-15] MEDS: predniSONE 10 MG TABLET PO SCH (17:53)
[2016-05-15] MEDS: CARVEDILOL 3.125 MG TABLET PO SCH (21:08)
[2016-05-16] MEDS: PIPERACILLIN/TAZOBACTAM 2.25 GM in SODIUM CHLORIDE 0.9% MINIBAG 100 ML IV SCH ×3 (00:16→17:10)
[2016-05-16] MEDS: IPRATROPIUM/ALBUTEROL 3 ML NEB INH PRN ×3 (00:50→21:30)
[2016-05-16] MEDS: SODIUM CHLORIDE FLUSH 0.9% 10 ML SYRINGE IVP SCH ×3 (06:55→21:56)
[2016-05-16] MEDS: LEVOTHYROXINE 25 MCG TABLET PO SCH (06:57)
[2016-05-16] MEDS: BUDESONIDE 0.5 MG/2 ML NEB INH SCH ×2 (07:29→21:30)
[2016-05-16] MEDS: INSULIN ASPART 300 UNIT/3 ML PEN SUBQ SCH ×6 (08:46→21:54)
[2016-05-16] MEDS: predniSONE 10 MG TABLET PO SCH (08:49)
[2016-05-16] MEDS: MULTIVITAMIN TABLET PO SCH (08:49)
[2016-05-16] MEDS: ENOXAPARIN 30 MG/0.3 ML SYRINGE SUBQ SCH (08:50)
[2016-05-16] MEDS: FUROSEMIDE 20 MG/2 ML VIAL IVP SCH (08:50)
[2016-05-16] MEDS: CLOPIDOGREL 75 MG TABLET PO SCH (08:50)
[2016-05-16] MEDS: CARVEDILOL 3.125 MG TABLET PO SCH ×2 (08:50→21:54)
[2016-05-16] MEDS: INSULIN GLARGINE 300 UNIT/3 ML PEN SUBQ SCH ×2 (08:51→21:56)
[2016-05-16] MEDS: POLYETHYLENE GLYCOL 3350 17 GM PACKET PO SCH (08:52)
[2016-05-16] MEDS: LOSARTAN 50 MG TABLET PO SCH (08:52)
[2016-05-16] MEDS: SENNA 8.6 MG TABLET PO SCH (08:52)
[2016-05-16] MEDS: METOPROLOL SUCCINATE 50 MG TABLET PO SCH (08:52)
[2016-05-16] MEDS: SODIUM CHLORIDE FLUSH 0.9% 10 ML SYRINGE IVP PRN (08:53)
[2016-05-16] MEDS: DOCUSATE SODIUM 250 MG CAPSULE PO SCH (09:08)
[2016-05-16] MEDS ORDERED: DEXTROSE 5% 1,000 ML IV PRN (10:20)
[2016-05-16] MEDS ORDERED: DEXTROSE GEL 37.5 GM TUBE PO PRN (10:20)
[2016-05-16] MEDS ORDERED: GLUCAGON 1 MG/ML VIAL SUBQ PRN (10:20)
[2016-05-16] MEDS ORDERED: DEXTROSE 50% ABBOJECT 25 GM/50 ML SYRINGE IVP PRN (10:20)
[2016-05-17] MEDS: PIPERACILLIN/TAZOBACTAM 2.25 GM in SODIUM CHLORIDE 0.9% MINIBAG 100 ML IV SCH ×4 (00:02→23:56)
[2016-05-17] MEDS: LEVOTHYROXINE 25 MCG TABLET PO SCH (06:15)
[2016-05-17] MEDS: SODIUM CHLORIDE FLUSH 0.9% 10 ML SYRINGE IVP SCH ×2 (06:15→09:33)
[2016-05-17] MEDS: IPRATROPIUM/ALBUTEROL 3 ML NEB INH PRN ×3 (07:39→15:08)
[2016-05-17] MEDS: BUDESONIDE 0.5 MG/2 ML NEB INH SCH ×2 (07:39→20:40)
[2016-05-17] MEDS: INSULIN ASPART 300 UNIT/3 ML PEN SUBQ SCH ×7 (09:26→20:47)
[2016-05-17] MEDS: POLYETHYLENE GLYCOL 3350 17 GM PACKET PO SCH (09:27)
[2016-05-17] MEDS: FUROSEMIDE 20 MG/2 ML VIAL IVP SCH (09:28)
[2016-05-17] MEDS: CARVEDILOL 3.125 MG TABLET PO SCH ×2 (09:28→20:47)
[2016-05-17] MEDS: SENNA 8.6 MG TABLET PO SCH (09:29)
[2016-05-17] MEDS: MULTIVITAMIN TABLET PO SCH (09:30)
[2016-05-17] MEDS: predniSONE 20 MG TABLET PO SCH (09:30)
[2016-05-17] MEDS: METOPROLOL SUCCINATE 50 MG TABLET PO SCH (09:30)
[2016-05-17] MEDS: DOCUSATE SODIUM 250 MG CAPSULE PO SCH (09:30)
[2016-05-17] MEDS: LOSARTAN 50 MG TABLET PO SCH (09:30)
[2016-05-17] MEDS: CLOPIDOGREL 75 MG TABLET PO SCH (09:32)
[2016-05-17] MEDS: INSULIN GLARGINE 300 UNIT/3 ML PEN SUBQ SCH ×2 (09:33→20:47)
[2016-05-17] MEDS: ENOXAPARIN 30 MG/0.3 ML SYRINGE SUBQ SCH (09:36)
[2016-05-17] MEDS: ALBUTEROL NEB 2.5 MG/3 ML INH PRN (20:40)
[2016-05-17] MEDS: SODIUM CHLORIDE FLUSH 0.9% 10 ML SYRINGE IVP PRN (23:56)
[2016-05-18] MEDS: SODIUM CHLORIDE FLUSH 0.9% 10 ML SYRINGE IVP SCH ×3 (02:09→08:17)
[2016-05-18] MEDS: LEVOTHYROXINE 25 MCG TABLET PO SCH (06:23)
[2016-05-18] MEDS: MULTIVITAMIN TABLET PO SCH (08:12)
[2016-05-18] MEDS: LOSARTAN 50 MG TABLET PO SCH (08:12)
[2016-05-18] MEDS: CLOPIDOGREL 75 MG TABLET PO SCH (08:12)
[2016-05-18] MEDS: CARVEDILOL 3.125 MG TABLET PO SCH (08:13)
[2016-05-18] MEDS: METOPROLOL SUCCINATE 50 MG TABLET PO SCH (08:13)
[2016-05-18] MEDS: predniSONE 20 MG TABLET PO SCH (08:13)
[2016-05-18] MEDS: INSULIN GLARGINE 300 UNIT/3 ML PEN SUBQ SCH (08:14)
[2016-05-18] MEDS: ENOXAPARIN 30 MG/0.3 ML SYRINGE SUBQ SCH (08:15)
[2016-05-18] MEDS: INSULIN ASPART 300 UNIT/3 ML PEN SUBQ SCH ×4 (08:15→12:03)
[2016-05-18] MEDS: FUROSEMIDE 20 MG/2 ML VIAL IVP SCH (08:17)
[2016-05-18] MEDS: PIPERACILLIN/TAZOBACTAM 2.25 GM in SODIUM CHLORIDE 0.9% MINIBAG 100 ML IV SCH (08:17)
[2016-05-18] MEDS: SENNA 8.6 MG TABLET PO SCH (08:23)
[2016-05-18] MEDS: DOCUSATE SODIUM 250 MG CAPSULE PO SCH (08:23)
[2016-05-18] MEDS: POLYETHYLENE GLYCOL 3350 17 GM PACKET PO SCH (08:23)
[2016-05-18] MEDS: BUDESONIDE 0.5 MG/2 ML NEB INH SCH (11:11)
[2016-05-18] MEDS: IPRATROPIUM/ALBUTEROL 3 ML NEB INH PRN (11:11)
[2016-05-19] MEDS ORDERED: predniSONE 10 MG TABLET PO SCH (08:00)
== END 2016-05-18 13:09 | DRG 70 ==
DX: G93.41 Metabolic encephalopathy (principal); I50.23 Acute on chronic systolic (congestive) heart failure; I11.0 Hypertensive heart disease with heart failure; I50.9 Heart failure, unspecified; E78.00 Pure hypercholesterolemia, unspecified; J96.22 Acute and chronic respiratory failure with hypercapnia; J45.909 Unspecified asthma, uncomplicated; G47.30 Sleep apnea, unspecified; E11.9 Type 2 diabetes mellitus without complications; R32 Unspecified urinary incontinence; R35.0 Frequency of micturition; F32.9 Major depressive disorder, single episode, unspecified; J96.21 Acute and chronic respiratory failure with hypoxia; J18.9 Pneumonia, unspecified organism; I13.0 Hypertensive heart and chronic kidney disease with heart failure and stage 1 through stage 4 chronic kidney disease, or unspecified chronic kidney disease; Z68.43 Body mass index [BMI] 50.0-59.9, adult; L03.115 Cellulitis of right lower limb; I48.91 Unspecified atrial fibrillation; I25.10 Atherosclerotic heart disease of native coronary artery without angina pectoris; Y95 Nosocomial condition; I87.2 Venous insufficiency (chronic) (peripheral); I48.2 Chronic atrial fibrillation; J44.9 Chronic obstructive pulmonary disease, unspecified; E11.65 Type 2 diabetes mellitus with hyperglycemia; G47.33 Obstructive sleep apnea (adult) (pediatric); D63.8 Anemia in other chronic diseases classified elsewhere; K82.8 Other specified diseases of gallbladder; E66.01 Morbid (severe) obesity due to excess calories; Z91.14 Patient's other noncompliance with medication regimen; Z91.19 Patient's noncompliance with other medical treatment and regimen; E86.0 Dehydration; Z74.01 Bed confinement status; B37.2 Candidiasis of skin and nail; E11.42 Type 2 diabetes mellitus with diabetic polyneuropathy; E11.22 Type 2 diabetes mellitus with diabetic chronic kidney disease; N18.2 Chronic kidney disease, stage 2 (mild); E78.5 Hyperlipidemia, unspecified; E03.9 Hypothyroidism, unspecified; I07.1 Rheumatic tricuspid insufficiency; Z79.4 Long term (current) use of insulin; Z79.01 Long term (current) use of anticoagulants; Z79.51 Long term (current) use of inhaled steroids; Z79.52 Long term (current) use of systemic steroids; Z79.899 Other long term (current) drug therapy; M19.90 Unspecified osteoarthritis, unspecified site; Z87.891 Personal history of nicotine dependence; Z66 Do not resuscitate

== ENCOUNTER 2016-05-18 13:11 | Outpatient (CLI) | payer MEDICARE, OTHER | END 2016-05-18 13:12 | DX: Z74.01 Bed confinement status (principal) | CPT/HCPCS: A0425; A0428 ==

== ENCOUNTER 2016-05-20 08:00 | Outpatient (CLI) | payer MEDICARE, OTHER | END 2016-05-20 08:01 | DX: D64.9 Anemia, unspecified (principal); J96.12 Chronic respiratory failure with hypercapnia; J18.9 Pneumonia, unspecified organism ==

== ENCOUNTER 2016-05-24 10:33 | Outpatient (CLI) | payer MEDICARE, OTHER | END 2016-05-24 10:34 | disposition home or self-care (01) | DX: R19.7 Diarrhea, unspecified (principal) ==

== ENCOUNTER 2016-05-28 12:15 | Outpatient (CLI) | payer MEDICARE, OTHER | END 2016-05-28 12:16 | disposition home or self-care (01) | DX: Z51.5 Encounter for palliative care (principal); R06.00 Dyspnea, unspecified; J44.9 Chronic obstructive pulmonary disease, unspecified; I48.2 Chronic atrial fibrillation; E11.65 Type 2 diabetes mellitus with hyperglycemia; E11.42 Type 2 diabetes mellitus with diabetic polyneuropathy; E11.22 Type 2 diabetes mellitus with diabetic chronic kidney disease; I13.0 Hypertensive heart and chronic kidney disease with heart failure and stage 1 through stage 4 chronic kidney disease, or unspecified chronic kidney disease; I50.9 Heart failure, unspecified; N18.9 Chronic kidney disease, unspecified; Z87.01 Personal history of pneumonia (recurrent); Z74.01 Bed confinement status; E66.01 Morbid (severe) obesity due to excess calories; R15.9 Full incontinence of feces; B37.2 Candidiasis of skin and nail; R10.9 Unspecified abdominal pain; R53.83 Other fatigue; J96.12 Chronic respiratory failure with hypercapnia; F32.9 Major depressive disorder, single episode, unspecified; J96.11 Chronic respiratory failure with hypoxia; E03.9 Hypothyroidism, unspecified; K21.9 Gastro-esophageal reflux disease without esophagitis; G47.33 Obstructive sleep apnea (adult) (pediatric); I87.2 Venous insufficiency (chronic) (peripheral); Z79.4 Long term (current) use of insulin; Z79.52 Long term (current) use of systemic steroids; Z79.899 Other long term (current) drug therapy; Z66 Do not resuscitate ==

== ENCOUNTER 2016-06-13 08:45 | Outpatient (CLI) | payer MEDICARE, OTHER | END 2016-06-13 08:46 | disposition home or self-care (01) | DX: J96.12 Chronic respiratory failure with hypercapnia (principal); I50.9 Heart failure, unspecified ==

== ENCOUNTER → 2016-10-18 | Outpatient (CLI) | payer MEDICARE, OTHER ==
[2016-10-18 22:58] LABS: BASOPHILS # (AUTO) 0.2 10^3/uL (0.0-0.1); BASOPHILS % (AUTO) 2.5 %; EOSINOPHILS # (AUTO) 0.3 10^3/uL (0.0-0.7); EOSINOPHILS % (AUTO) 3.1 %; HCT - HEMATOCRIT 38.4 % (37.0-47.0); LYMPHOCYTES # (AUTO) 3.6 10^3/uL (1.5-3.5); LYMPHOCYTES % (AUTO) 36.9 %; MEAN CORPUSCULAR HEMOGLOBIN 33.9 pg (27.0-31.0); MEAN CORPUSCULAR HGB CONC 33.7 g/dL (32.0-36.0); MEAN CORPUSCULAR VOLUME 100.4 fL (81.0-99.0); MEAN PLATELET VOLUME 10.1 fL (7.9-10.8); MONOCYTES # (AUTO) 0.7 10^3/uL (0.0-1.0); MONOCYTES % (AUTO) 6.9 %; NEUTROPHILS # (AUTO) 4.9 10^3/uL (1.5-6.6); NEUTROPHILS % (AUTO) 50.6 %; NUCLEATED RED BLOOD CELLS AUTO 0.2 /100WBC; RED BLOOD COUNT 3.83 10^6/uL (4.20-5.40); RED CELL DISTRIBUTION WIDTH 19.9 % (12.0-15.0); UNCORRECTED WHITE BLOOD COUNT 9.7 x10^3/uL; WHITE BLOOD COUNT 9.7 x10^3/uL (4.8-10.8)
[2016-10-18 23:12] LABS: CALCIUM 9.5 mg/dL (8.5-10.3); CREATININE 2.3 mg/dL (0.4-1.0); POTASSIUM 4.5 mmol/L (3.5-5.0)
[2016-10-18 23:20] LABS: PLATELET ESTIMATE, MANUAL NORMAL (130-450,000) (NORMAL); PLATELET MORPHOLOGY NORMAL APPEARANCE (NORMAL)
== END ==
LOC: LAB.R 08:00
DX: I10 Essential (primary) hypertension (principal); D64.9 Anemia, unspecified
CPT/HCPCS: 80048; 85025

== ENCOUNTER 2016-10-21 17:26 | Outpatient (CLI) | payer OTHER | END 2016-10-21 17:27 | disposition EMS.NT | LOC: EMS 17:26 | PROVIDERS: ATTEND Surgery | DX: R53.83 Other fatigue (principal) ==

== ENCOUNTER 2017-01-23 10:14 | Outpatient (CLI) | payer MEDICARE, OTHER | END 2017-01-23 10:15 | disposition critical access hospital (66) | LOC: EMS 10:14 | PROVIDERS: ATTEND Surgery | DX: R40.4 Transient alteration of awareness (principal); J44.9 Chronic obstructive pulmonary disease, unspecified; Z74.01 Bed confinement status | CPT/HCPCS: A0425; A0427; A0428 ==

== ENCOUNTER 2017-01-23 10:19 | Emergency (ER) | payer MEDICARE, OTHER ==
--- NOTE | 2017-01-23 10:53 | ED Physician Documentation ---
History of Present Illness - Stated complaint Stated Complaint: COPD - Chief complaint Chief Complaint: General - History obtained from History obtained from: EMS, Other (custodial records) - History of Present Illness Timing: Prior to arrival Review of Systems Unable to obtain: Unresponsive PD PAST MEDICAL HISTORY - Past Medical History Cardiovascular: Congestive heart failure, Hypertension, High cholesterol, Coronary artery disease, Atrial fibrillation Respiratory: Asthma, COPD, Shortness of breath, Sleep apnea Neuro: None Endocrine/Autoimmune: Type 2 diabetes, HyPOthyroidism GI: Other BILLER: None : Incontinence, Frequency HEENT: None Psych: Depression Musculoskeletal: Osteoarthritis Derm: Other - Past Surgical History Past Surgical History: Yes Ortho: Other /BILLER: Hysterectomy HEENT: Cataracts - Present Medications Home Medications: Ambulatory Orders Medication Instructions Recorded Confirmed Carvedilol [Coreg] 25 mg PO BID 12/12/15 05/07/16 Losartan Potassium 50 mg PO DAILY 12/12/15 05/07/16 Levothyroxine [Synthroid] 25 mcg PO QDAC 01/19/16 05/07/16 Montelukast [Singulair] 10 mg PO QPM 01/19/16 05/07/16 Ipratropium/Albuterol [Duoneb] 3 ml INH Q6H PRN #30 neb 01/21/16 05/07/16 Furosemide [Furosemide] 80 mg PO DAILY 03/31/16 05/07/16 metOLazone [Zaroxolyn] 2.5 mg PO DAILY #5 tablet 05/06/16 05/07/16 Budesonide [Pulmicort] 0.5 mg INH BID 05/07/16 05/07/16 Clopidogrel [Plavix] 75 mg PO DAILY 05/07/16 05/07/16 Insulin Aspart [NovoLOG] 0 - 11 unit SUBQ TIDWM 05/07/16 05/07/16 Insulin Glargine [Lantus Solostar] 80 unit SUBQ DAILY 05/07/16 05/07/16 Insulin Glargine [Lantus] 70 units SQ QPM 05/07/16 05/07/16 Multivitamin [Multivitamins] 1 tab PO DAILY 05/07/16 05/07/16 predniSONE [Prednisone] 10 mg PO DAILY 05/07/16 05/07/16 - Allergies Allergies/Adverse Reactions: Allergies Allergy/AdvReac Type Severity Reaction Status Date / Time cefaclor [From [facility]] Allergy Intermediate Itching Verified 05/07/16 10:50 - Social History Does the pt smoke?: No Smoking Status: Never smoker Does the pt have substance abuse?: No - Immunizations Immunizations are current?: Yes - POLST Patient has POLST: No PD ED PE NORMAL - Vitals Vital signs reviewed: Yes - General General: No acute distress. No: Alert and oriented X 3 - HEENT HEENT: Atraumatic. No: Moist mucous membranes (MM dry) - Cardiac Cardiac: RRR, No murmur - Respiratory Respiratory: Other (Decreased brath sounds bilateral ) - Abdomen Abdomen: Soft, Non distended - Female Female : Deferred - Derm Derm: Normal color, Warm and dry, No rash - Extremities Extremities: No deformity - Neuro Neuro: Other (Pt does not answer questions) Eye Opening: To Voice Motor: Obeys Commands Verbal: None GCS Score: 10 Results - Vitals Vitals: Vital Signs - 24 hr 01/23/17 01/23/17 01/23/17 10:20 10:49 11:58 Temperature 37.0 C 36.3 C L Heart Rate 87 94 73 Respiratory 20 11 L 20 Rate Blood Pressure 144/104 H 89/43 L 122/84 H O2 Saturation 88 L 98 98 01/23/17 13:00 Temperature 36.1 C L Heart Rate 79 Respiratory 18 Rate Blood Pressure 115/41 L O2 Saturation 100 Oxygen O2 Source [With Activity] Nasal cannula O2 Source [Without Activity] Room air O2 Source Nasal cannula - Labs Labs: Laboratory Tests 01/23/17 01/23/17 01/23/17 10:38 11:15 11:15 WBC 10.4 RBC 3.38 L Hgb 12.0 Hct 35.4 L MCV 104.8 H MCH 35.6 H MCHC 34.0 RDW 17.5 H Plt Count 145 MPV 9.3 Neut # 6.1 Lymph # 2.9 Door # 1.1 H Eos # 0.2 Baso # 0.1 Absolute Nucleated RBC 0.03 Nucleated RBC % 0.3 Manual Slide Review Indicated RBC Morph Micro Appear 1+ ANISOCYTOSIS Sodium 137 Potassium 4.6 Chloride 95 L Carbon Dioxide 25 Anion Gap 17.0 H BUN 98 H* Creatinine 4.3 H Estimated GFR (MDRD) 10 L Glucose 105 H POC Whole Bld Glucose 108 H Calcium 9.1 - Rads (name of study) cxr Radiology: EMP read contemporaneously (IMPRESSION: No radiographically apparent acute abnormality in the chest. ) PD MEDICAL DECISION MAKING - ED course Complexity details: d/w patient, d/w PMD ED course: Pt has PLOST and is DNR with comfort measures only. Has elevated Creat today. Is not in respiratory distress. No PNA on the CXR, not febrile and not hypoglycemic. Discussed with Dr Casillas (the pt's PCM). the plan is to discharge back to her nursing facility and not admit. No family at bedside. Departure - Departure Disposition: 01 Home, Self Care Clinical Impression: Acute kidney failure, unspecified Qualifiers: Acute renal failure type: unspecified Qualified Code(s): N17.9 - Acute kidney failure, unspecified Condition: Stable Instructions: Injury Acute Kidney Dc Follow-Up: Jason Casillas MD [Primary Care Provider] -
[2017-01-23 11:22] LABS: BASOPHILS # (AUTO) 0.1 10^3/uL (0.0-0.1); BASOPHILS % (AUTO) 1.1 %; EOSINOPHILS # (AUTO) 0.2 10^3/uL (0.0-0.7); EOSINOPHILS % (AUTO) 2.3 %; HCT - HEMATOCRIT 35.4 % (37.0-47.0); LYMPHOCYTES # (AUTO) 2.9 10^3/uL (1.5-3.5); LYMPHOCYTES % (AUTO) 27.8 %; MEAN CORPUSCULAR HEMOGLOBIN 35.6 pg (27.0-31.0); MEAN CORPUSCULAR VOLUME 104.8 fL (81.0-99.0); MEAN PLATELET VOLUME 9.3 fL (7.9-10.8); MONOCYTES # (AUTO) 1.1 10^3/uL (0.0-1.0); MONOCYTES % (AUTO) 10.5 %; NEUTROPHILS # (AUTO) 6.1 10^3/uL (1.5-6.6); NEUTROPHILS % (AUTO) 58.3 %; NUCLEATED RED BLOOD CELLS AUTO 0.3 /100WBC; RED BLOOD COUNT 3.38 10^6/uL (4.20-5.40); RED CELL DISTRIBUTION WIDTH 17.5 % (12.0-15.0); UNCORRECTED WHITE BLOOD COUNT 10.4 x10^3/uL; WHITE BLOOD COUNT 10.4 x10^3/uL (4.8-10.8)
[2017-01-23 11:41] LABS: CALCIUM 9.1 mg/dL (8.5-10.3); CREATININE 4.3 mg/dL (0.4-1.0); POTASSIUM 4.6 mmol/L (3.5-5.0)
--- NOTE | 2017-01-23 12:20 | XRAY Preliminary Report ---
Exam: XR CHEST 1 VIEW IMPRESSION: No radiographically apparent acute abnormality in the chest. [facility] SITE ID: [id number]
--- NOTE | 2017-01-23 12:22 | XRAY Report ---
EXAM: CHEST RADIOGRAPHY EXAM DATE: 01/23/2017 11:41 AM. CLINICAL HISTORY: Shortness of breath . COMPARISON: 05/14/2016. TECHNIQUE: 1 view. FINDINGS: Lungs/Pleura: No focal opacities evident. No pleural effusion. No pneumothorax. Mediastinum: Moderate enlargement of the cardiac silhouette is similar to prior. Other: None. IMPRESSION: No radiographically apparent acute abnormality in the chest. [facility] Referring Provider Line: [phone] SITE ID: [id number]
[2017-01-23 13:02] VITALS: BP 115/41
== END 2017-01-23 14:49 | disposition home or self-care (01) ==
LOC: EDBD → EDUNIT# → ED 10:19
DX: N17.9 Acute kidney failure, unspecified (principal); I11.0 Hypertensive heart disease with heart failure; I50.9 Heart failure, unspecified; E11.8 Type 2 diabetes mellitus with unspecified complications; I25.10 Atherosclerotic heart disease of native coronary artery without angina pectoris; E03.9 Hypothyroidism, unspecified; E78.00 Pure hypercholesterolemia, unspecified; Z79.4 Long term (current) use of insulin
CPT/HCPCS: 71010; 80048; 85025; 99283; 99284

== ENCOUNTER 2017-01-23 14:38 | Outpatient (CLI) | payer MEDICARE, OTHER | END 2017-01-23 14:39 | LOC: EMS 14:38 | PROVIDERS: ATTEND Surgery | DX: Z74.01 Bed confinement status (principal); J44.9 Chronic obstructive pulmonary disease, unspecified ==